=== PATIENT | male | born 1985 | race Caucasian/White ===

== ENCOUNTER 2022-10-17 23:07 | Emergency (ER) | payer OTHER ==
[~2022-10-17] VITALS: Ht 170.2 cm; Wt 77.1 kg
--- NOTE | 2022-10-17 23:08 | NUR ---
[facility] AND [employer] FOR [employer]. REQUESTING VOLUNTARY PSYCH ADMISSION. PT A/OX4. TOLERATING R/A WELL WITH NO RESP DISTRESS. PT IN GOWN, BELONGINGS COLLECTED TO BE PLACED IN LOCKERS, AND WANDED BY SECURITY. SAFETY MEASURES IN PLACE.
--- NOTE | 2022-10-17 23:31 | NUR ---
URINE COLLECTED AND SENT TO LAB
--- NOTE | 2022-10-17 23:51 | NUR ---
INCLUSION MANAGER AT PT'S BEDSIDE
[2022-10-18 00:26] LABS: BASOPHILS % (AUTO) 0.5 % (0.0-2.0); EOSINOPHILS % (AUTO) 0.7 % (0.0-6.0); HEMATOCRIT 35 % (39-51); HEMOGLOBIN 11.2 g/dL (13.5-17.5); LYMPHOCYTES % (AUTO) 16.3 % (20.0-44.0); MEAN CORPUSCULAR HGB CONC 32 g/dl (31.0-36.0); MEAN CORPUSCULAR VOLUME 90 fL (80-96); MONOCYTES # (AUTO) 0.4 K/uL (0.1-1.30); MONOCYTES % (AUTO) 7.4 % (2.0-12.0); NEUTROPHILS # (AUTO) 4.5 K/uL (1.8-8.9); NEUTROPHILS % (AUTO) 75.1 % (43.0-81.0); PLATELET COUNT (AUTO) 260 K/uL (150-450); RED BLOOD CELL COUNT(AUTO) 3.89 MIL/uL (4.5-6.0)
[2022-10-18 00:42] LABS: BILIRUBIN,URINE 2+ (NEGATIVE); COLOR,URINE DARK YELLOW (YELLOW); LEUKOCYTE ESTERASE ,URINE NEGATIVE (NEGATIVE); NITRITE, URINE NEGATIVE (NEGATIVE); PROTEIN,URINE 3+ mg/dl (NEGATIVE); UGLUCOSE TRACE mg/dL (NEGATIVE); UROBILINOGEN,URINE >=8.0 EU/dL (0.2)
[2022-10-18 00:44] LABS: CARBON DIOXIDE 23 mmol/L (21-32); CHLORIDE 99 mmol/L (98-107); CREATININE 1.2 mg/dL (0.6-1.3); GLUCOSE 108 mg/dL (74-106); POTASSIUM 3.2 mmol/L (3.5-5.1); SODIUM SERUM 134 mmol/L (136-145); UREA NITROGEN, BLOOD 14 mg/dL (7-18)
[2022-10-18 00:45] LABS: BACTERIA,URINE Rare /HPF (None Seen); RBC,URINE 0-2 /HPF (0-2); SQUAMOUS EPITHELIAL CELL,UR FEW /HPF (None Seen); WBC,URINE 0-2 /HPF (0-3)
[2022-10-18 00:59] LABS: ALANINE AMINOTRANSFERASE 11 U/L (12-78); ALBUMIN 2.6 g/dL (3.4-5.0); ALKALINE PHOSPHATASE 103 U/L (46-116); ASPARTATE AMINOTRANSFERASE 24 U/L (15-37); BILIRUBIN,DIRECT 1.7 mg/dL (0.0-0.2); BILIRUBIN,TOTAL 2.6 mg/dL (0.2-1.0); TOTAL PROTEIN, SERUM 7.1 g/dL (6.4-8.2)
[2022-10-18 01:03] LABS: ACETAMINOPHEN 0 ug/ml (10-30); ALCOHOL, BLOOD < 3 mg/dL (0-0)
--- NOTE | 2022-10-18 01:23 | NUR ---
FACESHEET AND CLINICALS FAXED TO [facility].
--- NOTE | 2022-10-18 02:40 | NUR ---
PT NOT ACCEPTED TO [facility] DUE TO INSURANCE PER [facility]TA[facility];
--- NOTE | 2022-10-18 09:54 | NUR ---
REFAXED CLINICALS TO [facility].
[2022-10-18 14:45] VITALS: BP 142/78
== END 2022-10-18 15:02 | disposition home or self-care (01) ==
LOC: ER 23:16
DX: R45.850 Homicidal ideations (principal); Z20.822 Contact with and (suspected) exposure to COVID-19; Z59.00 Homelessness unspecified; D64.9 Anemia, unspecified
CPT/HCPCS: 99285; 85025; 80048; 80076; 81001; 36415; 87426; 80143; 80320; 80307; C9803; G0480